=== PATIENT | male | born 1990 | race Caucasian/White ===

== ENCOUNTER 2016-09-16 10:46 | Emergency (ER) | payer BC ==
[2016-09-16 11:01] VITALS: BP 123/75
--- NOTE | 2016-09-16 12:13 | ED ---
Skin Complaint - HPI Summary HPI Summary: 26 YEAR OLD MALE PRESENTS WITH COMPLAINS OF RASH ON RIGHT LOWER LEG. - History of Current Complaint Chief Complaint: [facility] Time Seen by Provider: 09/16/16 10:48 Stated Complaint: SKIN CONCERN Pain Intensity: 0 Pain Scale Used: 0-10 Numeric - Allergy/Home Medications Allergies/Adverse Reactions: Allergies Allergy/AdvReac Type Severity Reaction Status Date / Time No Known Allergies Allergy Verified 09/16/16 10:56 PMH/Surg Hx/FS Hx/Imm Hx Endocrine/Hematology History: Denies: Hx Sickle Cell Disease Cardiovascular History: Denies: Other Cardiovascular Problems/Disorders Respiratory History: Denies: Other Respiratory Problems/Disorders GI History: Denies: Other GI Disorders History: Denies: Other Problems/Disorders Musculoskeletal History: Denies: Other Musculoskeletal History Sensory History: Denies: Hx Contacts or Glasses, Hx Hearing Aid Opthamlomology History: Denies: Hx Contacts or Glasses Neurological History: Denies: Other Neuro Impairments/Disorders - Surgical History Surgery Procedure, Year, and Place: ACL- knee. wrist surgery Hx Anesthesia Reactions: No Infectious Disease History: No Infectious Disease History: Denies: Traveled Outside the [place] in Last 30 Days - Social History Alcohol Use: Occasionally Substance Use Type: Reports: Marijuana Substance Use Comment - Amount & Last Used: occasional Smoking Status (MU): Current Some Day Smoker Review of Systems Constitutional: Negative Eyes: Negative ENT: Negative Respiratory: Negative Gastrointestinal: Negative Positive: Rash All Other Systems Reviewed And Are Negative: Yes Physical Exam Triage Information Reviewed: Yes Vital Signs On Initial Exam: Initial Vitals Temp Pulse Resp BP Pulse Ox 36.6 C 72 16 123/75 98 09/16/16 10:56 09/16/16 10:56 09/16/16 10:56 09/16/16 10:56 09/16/16 10:56 Vital Signs Reviewed: Yes Skin: Positive: Target Lesions Eyes: Positive: Normal ENT: Positive: Normal ENT inspection Neck: Positive: Supple Cardiovascular: Positive: Normal Abdomen Description: Positive: Nontender Diagnostics - Vital Signs Vital Signs Temp Pulse Resp BP Pulse Ox 09/16/16 10:56 36.6 C 72 16 123/75 98 - Laboratory Lab Statement: Any lab studies that have been ordered have been reviewed, and results considered in the medical decision making process. Course/Dx - Diagnoses Provider Diagnoses: Rash and nonspecific skin eruption Discharge - Discharge Plan Condition: Stable Disposition: HOME Prescriptions: RX: DOXYcycline CAP(*) [DOXYcycline 100MG CAP(*)] 100 mg PO BID #56 cap Patient Education Materials: Tick Bite (ED), Acute Rash (ED) Referrals: Dao Hodge [Medical Doctor] - If Needed
--- NOTE | 2016-09-19 14:51 | ED ---
Progress - Progress Note Progress Note: LYME (-), HAVE PATIENT FOLLOW WITH PCP TO RECHECK RASH/SYMPTOMS. THANKS SOM Course/Dx - Diagnoses Provider Diagnoses: Rash and nonspecific skin eruption
== END 2016-09-16 11:25 | disposition home or self-care (01) ==
LOC: UCCORT 10:46
DX: R21 Rash and other nonspecific skin eruption (principal); F12.90 Cannabis use, unspecified, uncomplicated; Z72.0 Tobacco use
CPT/HCPCS: 86618; 99212; G0463

== ENCOUNTER 2017-03-16 17:47 | Emergency (ER) | payer BC ==
[2017-03-16 18:49] VITALS: BP 140/71
--- NOTE | 2017-03-16 19:30 | ED ---
GI/ HPI - HPI Summary HPI Summary: 26 yr old male with the complaint of right testicular pain for a week, and feeling of fever and chills. He rates pain as moderate in the right testicle. Denies drainage, dysuria. he feels he has lost about 5 pounds. - History of Current Complaint Chief Complaint: [facility] Time Seen by Provider: 03/16/17 19:15 Stated Complaint: FEVER/PERONAL - Allergy/Home Medications Allergies/Adverse Reactions: Allergies Allergy/AdvReac Type Severity Reaction Status Date / Time No Known Allergies Allergy Verified 03/16/17 18:49 Home Medications: Home Medications NK [No Home Medications Reported] 03/16/17 [History Confirmed 03/16/17] PMH/Surg Hx/FS Hx/Imm Hx Endocrine/Hematology History: Denies: Hx Sickle Cell Disease Cardiovascular History: Denies: Other Cardiovascular Problems/Disorders Respiratory History: Denies: Other Respiratory Problems/Disorders GI History: Denies: Other GI Disorders History: Denies: Other Problems/Disorders Musculoskeletal History: Denies: Other Musculoskeletal History Sensory History: Denies: Hx Contacts or Glasses, Hx Hearing Aid Opthamlomology History: Denies: Hx Contacts or Glasses Neurological History: Denies: Other Neuro Impairments/Disorders - Surgical History Surgery Procedure, Year, and Place: ACL- knee. wrist surgery Hx Anesthesia Reactions: No Infectious Disease History: No Infectious Disease History: Denies: Traveled Outside the [place] in Last 30 Days - Social History Alcohol Use: Occasionally Substance Use Type: Reports: Marijuana Substance Use Comment - Amount & Last Used: occasional Smoking Status (MU): Current Some Day Smoker Review of Systems Positive: Chills Positive: pain - right testicle All Other Systems Reviewed And Are Negative: Yes Physical Exam Triage Information Reviewed: Yes Vital Signs On Initial Exam: Initial Vitals Temp Pulse Resp BP 98.8 F 77 16 140/71 03/16/17 18:45 03/16/17 18:45 03/16/17 18:45 03/16/17 18:45 Vital Signs Reviewed: Yes Appearance: Positive: Well-Appearing, No Pain Distress Skin: Positive: Warm Head/Face: Positive: Normal Head/Face Inspection Eyes: Positive: EOMI ENT: Positive: Normal ENT inspection Neck: Positive: Nontender Respiratory/Lung Sounds: Positive: Clear to Auscultation, Breath Sounds Present Male Genital Exam: Positive: no hernia, epididymal tenderness - right, testicular tenderness (R) - right. Negative: erythema, urethral discharge Neurological: Positive: Sensory/Motor Intact, Alert, Oriented to Person Place, Time, Normal Gait - Erica Coma Scale Best Eye Response: 4 - Spontaneous Diagnostics - Vital Signs Vital Signs Temp Pulse Resp BP 03/16/17 18:45 98.8 F 77 16 140/71 - Laboratory Lab Statement: Any lab studies that have been ordered have been reviewed, and results considered in the medical decision making process. GIGU Course/Dx - Course Course Of Treatment: 26 yr old with right scrotal pain, and tenderness over the right testes and epididymus. He was told he needs US or the scrotum this evening, adn told to go to the ER. He was told he had the possibility of tumors , infection, disability, , loss of testicle. He signed out AMA and verbalized he is not going to the ER tonight or tomorrow to be evaluated. - Diagnoses Provider Diagnoses: Testicular pain, right, Hypertension Discharge - Discharge Plan Condition: Good Disposition: AGAINST MEDICAL ADVICE Referrals: No Primary Care Phys,NOPCP [Primary Care Provider] -
== END 2017-03-16 19:28 | disposition left against medical advice (07) ==
LOC: UCCORT 17:47
DX: N50.811 Right testicular pain (principal); I10 Essential (primary) hypertension; F12.90 Cannabis use, unspecified, uncomplicated; Z72.0 Tobacco use
CPT/HCPCS: 99212; G0463